=== PATIENT | female | born 1980 | race Caucasian/White ===

== ENCOUNTER 2019-04-28 23:26 | Inpatient (IN) | payer OTHER, MEDICAID ==
[~2019-04-28] VITALS: Ht 157.5 cm; Wt 87.1 kg
[2019-04-28] MEDS ORDERED: LIDOCAINE 2%HCL (LOCAL ANESTH.) INJ 20ML MDV ONE (23:34)
[2019-04-28] MEDS ORDERED: LACT. RINGERS/OXYTOCIN 20UNITS 1,000 ML IV ONE (23:34)
[2019-04-29] MEDS ORDERED: LACTATED RINGER'S 1,000 ML IV SCH (00:01)
[2019-04-29] MEDS ORDERED: LACT. RINGERS/OXYTOCIN 20UNITS 1,000 ML IV SCH (00:01)
[2019-04-29] MEDS ORDERED: LIDOCAINE 2%HCL (LOCAL ANESTH.) INJ 20ML MDV ID ONE (00:15)
[2019-04-29] MEDS ORDERED: DERMOPLAST 60ML BOTTLE TOP PRN (00:15)
[2019-04-29] MEDS ORDERED: METHYLERGONOVINE MALEATE 0.2 MG/ML AMP IM PRN (00:15)
[2019-04-29] MEDS ORDERED: WITCH HAZEL-GLYCERIN PAD TOP PRN (00:15)
[2019-04-29] MEDS ORDERED: PHISODERM TOP SOLN 240ML BTL TOP PRN (00:15)
--- NOTE | 2019-04-29 00:55 | NUR ---
Bedpan provided voided 800ml
[2019-04-29] MEDS ORDERED: ACETAMINOPHEN 325 MG TAB PO PRN (01:15)
[2019-04-29 01:25] LABS: Basophils # (auto) 0 uL; Basophils % (auto) 0.4 % (0.0-2.0); Eosinophils # (auto) 0 uL; Eosinophils % (auto) 0.3 % (0.0-7.0); Hematocrit 37.7 % (36.0-46.0); Hemoglobin 12.8 g/dL (12.2-16.2); Lymphocytes # (auto) 1.1 uL; Lymphocytes % (auto) 8.9 % (10.0-50.0); Mean Corpuscular Hemoglobin 29.4 pg (28.0-32.0); Mean Corpuscular Hgb Conc. 33.9 g/dL (32.0-36.0); Mean Corpuscular Volume 86.9 fL (80.0-100.0); Monocytes # (auto) 0.5 uL; Monocytes % (auto) 4.3 % (0.0-12.0); Neutrophils # (auto) 10.2 uL; Neutrophils % (auto) 86.1 % (37.0-80.0); Platelet Count (auto) 161 10^3/uL (140-450); Red Blood Cells 4.33 10^6/uL (4.0-5.20); Red Cell Distribution Width 16.7 % (11.8-14.3); White Blood Cell 11.8 10^3/uL (4.4-10.8)
[2019-04-29 01:34] LABS: Albumin 2.6 g/dL (3.4-5.0); BUN/Creatinine Ratio 20.3; Calcium 8.9 mg/dL (8.5-10.1); Potassium 3.8 mmol/L (3.5-5.1)
[2019-04-29 01:37] LABS: Bilirubin, Total 0.3 mg/dL (0.2-1.0); Total Protein 6.6 g/dL (6.4-8.2)
[2019-04-29 01:52] LABS: INR 0.92 (0.9-1.15); Partial Thromboplastin Time 26.3 sec (23.64-32.05)
[2019-04-29] MEDS ORDERED: PREN-129 OR (01:54)
[2019-04-29] MEDS ORDERED: CHOL20007 PO (01:54)
[2019-04-29 02:09] LABS: Uric Acid 4.6 mg/dL (2.6-6.0)
[2019-04-29 02:12] LABS: Urine Bacteria FEW /hpf (None Seen); Urine Blood 3+ /uL (Negative); Urine Specific Gravity 1.008 (1.001-1.035); Urine WBC 13 /hpf (0 - 5)
--- NOTE | 2019-04-29 02:15 | NUR ---
Teaching: Reviewed information in [facility] booklet with patient. Discussed benefits of and risks associated with not . Discussed different positions, proper latch, feeding cues, and baby-led . Provided information of medication side effects related to . All questions and concerns addressed at this time. Patient verbalized understanding of information.
[2019-04-29] MEDS: IBUPROFEN 600 MG TAB PO PRN ×2 (02:25→16:01)
[2019-04-29 02:28] LABS: Alcohol, Urine < 3.0 mg/dL (0-5); Amphetamine Screen, Urine NEGATIVE (NEGATIVE); Barbiturate Scree,Urine NEGATIVE (NEGATIVE); Benzodiazephine Screen, Urine NEGATIVE (NEGATIVE); Cannabinoid Screen, Urine NEGATIVE (NEGATIVE); Cocaine Screen, Urine NEGATIVE (NEGATIVE); Opiate Scree,Urine NEGATIVE (NEGATIVE); Phencyclidine Screen, Urine NEGATIVE (NEGATIVE)
--- NOTE | 2019-04-29 03:28 | NUR ---
Ambulation: Patient OOB with standby assistance by RN. Patient ambulated to bathroom with steady gait. Patient able to void without difficulty 750 ml. [facility] teaching provided with returned demonstration by patient. Clean gown provided and bed linen changed. Patient ambulated back to bed with steady gait and no distress noted.
--- NOTE | 2019-04-29 06:16 | NUR ---
Report given to Brett Hernandez RN Endorsed care
[2019-04-29 07:00] VITALS: BP 126/63
--- NOTE | 2019-04-29 18:15 | NUR ---
Received report, assumed care.
--- NOTE | 2019-04-29 18:30 | NUR ---
Galileo, RN from NICU at [facility] at bedside, discussing transfer of baby and rules/guidelines of NICU . EMR team at bedside with isolette allowing pt to say goodbye, touch prior to transport.
--- NOTE | 2019-04-29 18:45 | NUR ---
Call placed to Dr Uribe for status update on pt and being transferred to [facility]. Pt is tearful and requesting to be discharged home to be with family and to visit . Pt denies pain, is a , states she had care with [facility] in September 2018. Pt fundus is firm, lochia is light, vital signs stable, afebrile. Per MD pt may leave against medical advise. Pt is not being discharged this evening. This RN updated patient and she stated she will leave AMA.
[2019-04-29 19:00] VITALS: BP 110/65
[2019-04-29] MEDS ORDERED: RHO (D) IMMUNE GLOBULIN 300 MCG INJ IM ONE (19:45)
--- NOTE | 2019-04-29 20:00 | NUR ---
Discharge teaching completed. This RN awaiting rhogam from blood bank as infant blood type is unkown.
--- NOTE | 2019-04-29 20:30 | NUR ---
Follow up call placed to Blood bank, awaiting rhogam. Per Lab, rhogam is not ready.
--- NOTE | 2019-04-29 21:30 | NUR ---
Call placed to Blood bank, theresaam is not ready.
--- NOTE | 2019-04-29 22:05 | NUR ---
Call placed to Dr Uribe to confirm need for pt to receive rhogam. This RN was educated by cleaner signsOSBALDO Booker that infants cord blood was ? for lack of a better term, indeterminate, regarding type and rh factor, however was Direct Sonia positive. Per cleaner signs Jessica Booker. the blood was sent off to the [facility] for results, and we would not have results until tomorrow. Dr Uribe stated until the baby's blood type was known, it was not recommended to give rhogam. This RN verbalized understanding and further questioned if pt should return tomorrow once results of baby were known. Dr Uribe concurred, pt to return to [facility] for rhogam injection if needed.
--- NOTE | 2019-04-29 22:25 | NUR ---
Pt signed paperwork for for leaving against medical advice.
--- NOTE | 2019-04-29 22:30 | NUR ---
Pt left with , with all personal belongings, denying pain and stopped at front office supervisor to complete a compliment card for the superior care she received, per patient.
[2019-05-01 06:06] LABS: RPR Non Reactive (Non Reactive); Rubella Antibodies, IgG <0.90 index (Immune >0.99)
== END 2019-04-29 22:30 | disposition left against medical advice (07) | DRG 807 ==
LOC: LDRP 23:26
PROVIDERS: ADMIT Obstetrics & Gynecology; ATTEND Obstetrics & Gynecology
PROC: 10E0XZZ Delivery of Products of Conception, External Approach (ICD-10-PCS; principal; 2019-04-29)
PROC: 0HQ9XZZ Repair Perineum Skin, External Approach (ICD-10-PCS; 2019-04-29)
DX: O77.0 Labor and delivery complicated by meconium in amniotic fluid (principal); Z37.0 Single live birth; O69.81X0 Labor and delivery complicated by cord around neck, without compression, not applicable or unspecified; O99.52 Diseases of the respiratory system complicating childbirth; J45.909 Unspecified asthma, uncomplicated; Z86.32 Personal history of gestational diabetes; Z3A.37 37 weeks gestation of pregnancy; O70.0 First degree perineal laceration during delivery; O99.824 Streptococcus B carrier state complicating childbirth; Z53.29 Procedure and treatment not carried out because of patient's decision for other reasons
CPT/HCPCS: 36415; 80053; 80307; 81001; 84112; 84550; 85025; 85610; 85730; 86592; 86703; 86762; 86850; 86870; 86900; 86901; 87340; 94760; 96361; G0378; J2590